=== PATIENT | female | born 1965 | race African-American/Black ===

== ENCOUNTER 2017-11-10 10:53 | Emergency (ER) | payer MEDICAID ==
[~2017-11-10] VITALS: Ht 170.2 cm; Wt 80.6 kg
[~2017-11-10 10:53] MED LIST: ASPI81TA52 PO; AZIT250T PO; CLIN-79 PO; CYCL-1 PO; DIAZ2TAB PO; IBUP-1985 PO; METF500T4 PO
[2017-11-10] MEDS ORDERED: ketorolac trometh inj. 60 MG/2 ML VIAL IM ONE (12:25)
[2017-11-10] MEDS ORDERED: D-ME118S12 PO (12:39)
[2017-11-10] MEDS ORDERED: IBUP-1985 PO (12:39)
[2017-11-10 12:55] VITALS: BP 165/99
== END 2017-11-10 13:06 | disposition home or self-care (01) ==
LOC: ER 10:54
DX: J06.9 Acute upper respiratory infection, unspecified (principal); B34.9 Viral infection, unspecified; I10 Essential (primary) hypertension; E11.9 Type 2 diabetes mellitus without complications; Z79.82 Long term (current) use of aspirin; Z79.84 Long term (current) use of oral hypoglycemic drugs; Z88.0 Allergy status to penicillin
CPT/HCPCS: 96372; 99283; J1885

== ENCOUNTER 2017-12-16 14:42 | Emergency (ER) | payer MEDICAID ==
[~2017-12-16] VITALS: Ht 170.2 cm; Wt 81.0 kg
[2017-12-16 14:52] VITALS: BP 164/103
[2017-12-16] MEDS ORDERED: LIDOcaine 1% 30ml preserv. free vial IJ STA (17:28)
[2017-12-16] MEDS ORDERED: triamcinolone acetonide 40mg/ml inj IM ONE (17:30)
[2017-12-16] MEDS ORDERED: acetaminophen 325mg tablet PO ONE (17:30)
[2017-12-16] MEDS ORDERED: nitroGLYCERIN 1gm ointment UD TP ONE (18:30)
== END 2017-12-16 19:07 | disposition home or self-care (01) ==
LOC: ER 14:42
DX: M25.511 Pain in right shoulder (principal); I10 Essential (primary) hypertension; E11.9 Type 2 diabetes mellitus without complications; Z88.0 Allergy status to penicillin; Z79.82 Long term (current) use of aspirin; Z79.84 Long term (current) use of oral hypoglycemic drugs; Z79.899 Other long term (current) drug therapy
CPT/HCPCS: 99281